=== PATIENT | female | born 1980 | race Caucasian/White ===

== ENCOUNTER → 2020-11-01 16:53 | Outpatient (CLI) | payer BC, SELFPAY ==
[2020-11-01 17:45] LABS: Add Manual Diff / Slide Review NO; Basophils Absolute Auto 0 /uL (0-100); Basophils Percent Auto 0.2 % (0-2); Eosinophils Absolute Auto 200 /uL (0-450); Eosinophils Percent Auto 1.3 % (2-4); Hematocrit 36.7 % (36-46); Hemoglobin 12.7 g/dL (12.0-16.0); Lymphocytes Absolute Auto 2300 /uL (1100-4500); Lymphocytes Percent Auto 19.2 % (25-40); Mean Corpuscular HGB Conc 34.7 % (30-36); Mean Corpuscular Hemoglobin 32.9 PG (26-34); Mean Corpuscular Volume 94.8 fL (80-100); Monocytes Absolute Auto 400 /uL (0-900); Monocytes Percent Auto 3.8 % (3-14); Neutrophils Absolute Auto 9000 /uL (1500-7000); Neutrophils Percent Auto 75.5 % (50-75); Platelet Count 301 X10^3/uL (150-400); Red Blood Cell Count 3.87 X10^6/uL (4.0-5.2); Red Cell Distribution Width 12.7 % (11.6-14.8); White Blood Cell Count 11.9 X10^3/uL (4.5-11.0)
[2020-11-01 17:53] LABS: Appearance Urine UA CLEAR; Bilirubin Urine UA NEGATIVE (NEGATIVE); Color Urine UA YELLOW; Glucose Urine UA NEGATIVE (Negative); Ketones Urine UA 1+ (NEGATIVE); Leukocyte Esterase Urine UA NEGATIVE (NEGATIVE); Nitrite Urine UA NEGATIVE (Negative); Occult Blood Urine UA TRACE-INTACT (Negative); Protein Urine UA NEGATIVE (Negative); Urobilinogen Urine UA 0.2 E.U./dL (0.2)
[2020-11-01 18:20] LABS: pH Urine UA 5.5 (4.5-8.0)
[2020-11-01 21:34] LABS: HIV 1 & 2 Ab/Ag 4th Gen Combo NEGATIVE (NEGATIVE); Hep C Virus Ab w/Reflex Quant NEGATIVE s/c (NEGATIVE); Hepatitis B Surface Antigen NEGATIVE s/c (NEGATIVE); Rubella Antibody IgG 25.9 IU/mL (>15)
[2020-11-02 06:07] LABS: RPR Screen Non Reactive (Non Reactive)
[2020-11-02 07:09] LABS: Varicella IgG Antibody 1773 index (Immune >165)
[2020-11-03 20:40] LABS: AFP, Serum 53.9 ng/mL (.); Calc Gestational Age Ultrasound (.); Estriol, Free 0.88 ng/mL (.); Inhibin A, Dimeric 267.27 pg/mL (.); Inhibin A, MoM 1.58 (.); Maternal Ethnicity Caucasian (.); Maternal Weight 137 lbs (.); Number of Fetuses No (.); OSBR Risk 1 IN 2965 (.); Results Report (.); Test Results *Screen Negative* (.); hCG, MoM 1.28 (.); hCG, Serum 56206 mIU/mL (.)
== END ==
PROVIDERS: Referring Provider Obstetrics & Gynecology; Visit Provider Obstetrics & Gynecology
DX: Z34.82 Encounter for supervision of other normal pregnancy, second trimester (principal); Z3A.16 16 weeks gestation of pregnancy
CPT/HCPCS: 36415; 80055; 81003; 82105; 82677; 84702; 86336; 86787; 86803; 86850; 86900; 86901; 87086; 87389

== ENCOUNTER → 2020-11-29 12:28 | Outpatient (CLI) | payer BC, SELFPAY ==
--- NOTE | 2020-11-29 12:29 | DI.US.S_ITS ---
PROCEDURE: US OB >= 14 WEEKS FETUS INDICATIONS: 20 week Anatomy Survey OUTSIDE/PRIOR DATING DATA: Last menstrual period (LMP): Unknown. LMP-based estimated date of delivery (BRIAN): Unknown. First dating scan (date and location): 11/01/2020. Estimated date of delivery (BRIAN) from first dating scan: 04/18/2021. TECHNIQUE: Real-time scanning was performed of the fetus, with image documentation and biometric measurements. Endovaginal scanning: Not performed COMPARISON: [facility], , OB >= 14 WEEKS FETUS, 11/29/2020, 16:29. FINDINGS: General: A single living intrauterine gestation is present. Presentation: Breech. Placenta: Placental position is anterior, without previa. Amniotic fluid index: 14.2 cm, normal range is 5-24 cm. heart rate: 155 beats per minute. Maternal cervical canal: 4.8 cm long. Normal lower limit is 2.5 cm. biometrics: Biparietal diameter: 4.4 cm, 19 weeks 3 days Head circumference: 16.5 cm, 19 weeks 1 day Abdominal circumference: 15.2 cm, 20 weeks 3 days Femur length: 3.1 cm, 19 weeks 4 days Estimated gestational age from initial scan: 20 weeks 0 days Composite gestational age from present scan: 19 weeks 5 days Estimated weight and percentile: 320 g 40th percentile. Measurement variability for biometric dating: +/- 7 days from 14 weeks to 15 weeks 6 days gestation, +/- 10 days from 16 weeks to 21 weeks 6 days gestation, +/- 2 weeks from 22 weeks to 27 weeks 6 days gestation, +/- 3 weeks for 28 weeks gestation or later. weight reference: 4500 g or EFW >90/95% is considered macrosomia or large for gestational age. EFW <10% is small for gestational age. EFW 5% or less is considered intra-uterine growth restriction. Anatomic survey: Neuro: Ventricles are non-dilated at less than 10 mm. Cisterna magna is normal at 3-11 mm. Cerebellum is normal in size and morphology. Nuchal skin fold: Normal at less than 6 mm between 14-21 weeks gestational age. Face: Nose and lips, facial profile are normal. Spine: No evidence for spina bifida. Heart: 4-chambered heart is present, with normal ventricular outflow tracts. Diaphragm: Diaphragm is intact. Stomach: Left-sided stomach is present. Kidneys: No hydronephrosis. Normal is less than 5 mm in 2nd trimester, less than 7 mm in 3rd trimester. Cord: 3-vessel cord has orthotopic insertion. Bladder: Normal in size. Extremities: All 4 extremities identified. IMPRESSION: 1. Donald living intrauterine at 19 weeks 5 days based on today's ultrasound. This is concordant with the prior ultrasound. There is expected interval growth. 2. Normal placenta and amniotic fluid. 3. Normal and complete anatomic survey. Dictated by: Luis Fernando Layne M.D. on 11/29/2020 at 17:41 Approved by: Luis Fernando Layne M.D. on 11/29/2020 at 17:44
== END ==
PROVIDERS: Referring Provider Obstetrics & Gynecology; Visit Provider Obstetrics & Gynecology
DX: Z36.89 Encounter for other specified antenatal screening (principal); O09.522 Supervision of elderly multigravida, second trimester; Z3A.19 19 weeks gestation of pregnancy
CPT/HCPCS: 76811

== ENCOUNTER → 2020-12-29 14:45 | Outpatient (CLI) | payer BC, SELFPAY ==
[2020-12-29 20:58] LABS: Urine N gonorrhoeae NOT DETECTED
[2020-12-29 21:19] LABS: Urine Chlamydia NOT DETECTED
== END ==
PROVIDERS: Visit Provider Obstetrics & Gynecology
DX: Z34.82 Encounter for supervision of other normal pregnancy, second trimester (principal); Z3A.24 24 weeks gestation of pregnancy
CPT/HCPCS: 87491; 87591

== ENCOUNTER → 2021-01-18 07:20 | Outpatient (CLI) | payer BC, SELFPAY ==
[2021-01-18 09:35] LABS: Hematocrit 38.1 % (36-46)
[2021-01-18 10:28] LABS: GTT (PREG) 1 Hour PP 50gm Dose 159 mg/dL (76-139)
== END ==
PROVIDERS: Referring Provider Obstetrics & Gynecology; Visit Provider Obstetrics & Gynecology
DX: Z34.82 Encounter for supervision of other normal pregnancy, second trimester (principal); Z3A.26 26 weeks gestation of pregnancy
CPT/HCPCS: 36415; 82950; 85014; 85018

== ENCOUNTER → 2021-01-23 07:06 | Outpatient (CLI) | payer BC, SELFPAY ==
[2021-01-23 08:40] LABS: Glucose Fasting Gestational 77 mg/dL (76-95)
[2021-01-23 09:55] LABS: Glucose 1 Hour Gest 180 mg/dL (76-180)
[2021-01-23 10:57] LABS: Glucose Tol Interp,Gestational INTERPRETATION
[2021-01-23 11:12] LABS: Glucose 2 Hour Gest 143 mg/dL (76-155)
[2021-01-23 12:14] LABS: Glucose 3 Hour Gest 91 mg/dL (76-140)
== END ==
PROVIDERS: Referring Provider Obstetrics & Gynecology; Visit Provider Obstetrics & Gynecology
DX: O99.810 Abnormal glucose complicating pregnancy (principal)
CPT/HCPCS: 36415; 82951; 82952

== ENCOUNTER 2021-03-16 16:02 | Outpatient (CLI) | payer BC, SELFPAY | END 2021-03-16 16:40 | disposition home or self-care (01) | LOC: OB 03-21 12:04 | PROVIDERS: Referring Provider Obstetrics & Gynecology; Visit Provider Obstetrics & Gynecology | DX: O36.8130 Decreased fetal movements, third trimester, not applicable or unspecified (principal); Z3A.35 35 weeks gestation of pregnancy; Z34.03 Encounter for supervision of normal first pregnancy, third trimester | CPT/HCPCS: 59025; 87653; G0378; G0379 ==

== ENCOUNTER → 2021-03-16 16:15 | Outpatient (CLI) | payer BC, SELFPAY ==
[2021-03-17 11:58] LABS: Strep Grp B PCR NEG for Grp B Strep
== END ==
PROVIDERS: Visit Provider Obstetrics & Gynecology
DX: Z34.03 Encounter for supervision of normal first pregnancy, third trimester (principal); Z3A.35 35 weeks gestation of pregnancy
CPT/HCPCS: 87653

== ENCOUNTER 2021-04-10 18:10 | Inpatient (IN) | payer BC, SELFPAY ==
[2021-04-10 22:57] LABS: Add Manual Diff / Slide Review NO; Basophils Absolute Auto 100 /uL (0-100); Basophils Percent Auto 0.5 % (0-2); Eosinophils Absolute Auto 100 /uL (0-450); Eosinophils Percent Auto 0.8 % (2-4); Hemoglobin 12.7 g/dL (12.0-16.0); Lymphocytes Absolute Auto 1800 /uL (1100-4500); Lymphocytes Percent Auto 15.4 % (25-40); Mean Corpuscular HGB Conc 33.4 % (30-36); Mean Corpuscular Hemoglobin 31.9 PG (26-34); Mean Corpuscular Volume 95.6 fL (80-100); Monocytes Absolute Auto 600 /uL (0-900); Monocytes Percent Auto 5.4 % (3-14); Neutrophils Absolute Auto 9100 /uL (1500-7000); Neutrophils Percent Auto 77.9 % (50-75); Platelet Count 233 X10^3/uL (150-400); Red Blood Cell Count 3.97 X10^6/uL (4.0-5.2); Red Cell Distribution Width 13.8 % (11.6-14.8); White Blood Cell Count 11.7 X10^3/uL (4.5-11.0)
[2021-04-10] MEDS: ACETAMINOPHEN 325 MG TABLET 650 MG PO (23:12)
[2021-04-10] MEDS: miSOPROStoL 25 MCG TABLET 50 MCG PO (23:13)
[2021-04-10] MEDS: OXYCODONE IR 10 MG TABLET PO (23:13)
[2021-04-10 23:32] VITALS: BP 136/77
[2021-04-11 00:43] LABS: COVID19 - ADMIT (NP swab/PCR) Negative (Negative)
[2021-04-11] MEDS: ACETAMINOPHEN 325 MG TABLET 650 MG PO ×2 (06:20→17:45)
[2021-04-11] MEDS: PANTOPRAZOLE DR 40 MG TABLET PO (06:20)
[2021-04-11] MEDS: OXYCODONE IR 10 MG TABLET PO (06:20)
[2021-04-11] MEDS: DOCUSATE 100 MG CAPSULE 200 MG PO (09:12)
[2021-04-11] MEDS: LACTATED RINGERS 1,000 ML 100 ML IV (09:28)
[2021-04-11] MEDS: FENT 2MCG/ML BUPIV 0.125% EPI 200 MCG/100 ML PLAST..BAG 10 MCG EPIDURAL (10:33)
[2021-04-11] MEDS: OXYTOCIN PREMIX 30 UNIT/500 ML PLAST..BAG IV (11:24)
--- NOTE | 2021-04-11 17:32 | PM.OBPRVD ---
Events: Labor Induction Labor & Delivery Delivery date: 04/11/21 Cervical ripening method: per misoprostal protocol Induction method: per pitocin protocol Delivery augmentation: rupture of membranes Delivery monitor: external FHT and external uterine Route of delivery: Episiotomy description: None L&D Laceration Description: Labial and Superficial (vaginal) Delivery repair: chromic Estimated blood loss (mL): 100 Anesthesia Type: Epidural Complications: None Narrative: Patient complete and pushed for 2 hours and 4 minutes. At 5:07 p.m., a live male infant delivered in the ROT presentation. Nuchal cord x1 reduced on the perineum. The remainder of the body delivered without difficulty and were placed on mom's abdomen. The cord was double clamped and cut after it stopped pulsing. Pitocin was given in the IV fluids. Cord bloods were obtained. The umbilical cord snapped with traction. A manual extraction of the placenta at 5:20 p.m.. Fundus was massaged to firm. A right superficial labial laceration was repaired with 3-0 chromic in a running interlocking fashion. A superficial vaginal laceration in the midline was repaired with 3 0 chromic with 2 simple interrupted sutures. Hemostasis was achieved. Apgars 9 at 1 minute and 9 at 5 minutes. Epidural analgesia. . Mom and stable to recovery. Lap and 4 x 4 count correct. Needle count correct. Weight 6# 6.7oz Baby 1: gender: Male Presentation: vertex Position: Right Occiput Transverse Placenta delivery description: Manual Removal Cord Vessel Description: 3 Vessels, Nuchal Cord, Loose, Reduced and Clamped/Cut score (1 min): 9 score (5 min): 9 weight: 6 lb 6 oz Plan for aftercare: Routine care
[2021-04-11] MEDS: IBUPROFEN 600 MG TABLET PO (17:45)
[2021-04-11] MEDS: OXYCODONE IR 5 MG TABLET PO (20:10)
[2021-04-12 05:23] LABS: Hematocrit 37.5 % (36-46); Hemoglobin 12.5 g/dL (12.0-16.0)
[2021-04-12] MEDS: OXYCODONE IR 5 MG TABLET PO (06:45)
[2021-04-12] MEDS: ACETAMINOPHEN 325 MG TABLET 650 MG PO ×2 (06:45→12:18)
[2021-04-12] MEDS: DOCUSATE 100 MG CAPSULE PO (09:13)
[2021-04-12] MEDS: PRENATAL VIT,CALC/IRON/FOLIC 1 TABLET 1 TAB PO (09:13)
[2021-04-12] MEDS: IBUPROFEN 600 MG TABLET PO (12:07)
[2021-04-12] MEDS: DERMOPLAST SPRAY 20% 60 ML 1 SPRAY TOP (12:09)
[2021-04-12 14:15] VITALS: BP 105/63; PULSE 82; RESP 16; TEMP 36.6
--- NOTE | 2021-04-13 13:12 | PM.OBDS.1 ---
Discharge Providers Provider Date of admission: 04/10/21 18:10 Discharge Date: 04/12/21 Primary care physician: Doctor Abigail MD Discharge provider: Lnyne Pedroza MD Summary Hospital Course Date Patient Seen: 04/12/21 Time Patient Seen: 13:00 Diagnoses: 39 weeks gestation Moreno's Palsy Cervical ripening with misoprostol Spontaneous vaginal delivery Superficial vaginal and right labial laceration and repair Hospital Course: Patient is a 40-year-old 2 para 1 who presented on April 10, 2021 for cervical ripening with misoprostol. She received 1 dose. She progressed into active labor. She received an epidural for pain management. She had an artificial rupture of membranes. She had a spontaneous vaginal delivery without complication. Her course was unremarkable and she was discharged home on day # 1. Peripartum Data Infant Delivery Method: Natural Vaginal Laceration Description: Labial and Superficial ( Vaginal and right labial) Episiotomy description: None Procedures: Cervical ripening with misoprostol Artificial rupture of member Spontaneous vaginal delivery Epidural analgesia Superficial right labial and superficial vaginal laceration repair complications: none 1: Gender: Male Disposition of : home Status at Discharge Cognitive/behavioral status at discharge: oriented Functional status at discharge: independent ambulation Overall status at discharge: patient is progressing back to baseline Time Spent with Patient Time attestation: Total time spent providing and/or coordinating discharge services: Time spent: Less than 30 minutes Objective Labs Result Diagrams: 04/12/21 05:05 Discharge Plan Discharge Plan Patient Disposition: Home Provider Discharge Comment: Call with fever, chills, or bleeding vaginally more than a pad in an hour Ibuprofen 600-800 mg every 6 hours as needed for cramping Tylenol 650 mg every 6 hours as needed Discharge orders & Medications Prescriptions: Continued ELECTRIC BREAST PUMP, CHOICE PENDING See Rx Instructions .ROUTE .COMPLEX Qty: 1 RF: 0 prenat.vits,vangie,fea-rhve-mkunn Tablet 1 tab PO DAILY RF: 0 oxycodone 5 mg tablet 5 mg PO Q4H PRN (Reason: pain) Qty: 20 RF: 0 Discontinued pantoprazole [Protonix] 40 mg tablet,delayed release (DR/EC) 40 mg PO DAILY Qty: 30 RF: 3 ondansetron 4 mg tablet,disintegrating 4 mg PO Q6H PRN (Reason: nausea and vomiting) Qty: 14 RF: 0 Follow up/Referrals: Lynne Pedroza MD [Physician] - 6 Weeks (Novemeber 10th, [address] check with Dr Pedroza) Diet/Activity/Treatments Diet: Regular Activity: nothing in the vagina for 6 weeks Skin/Wound/Dressing Care Report to your healthcare provider any signs of infection, such as:: chills, fever, increased pain and unusual drainage Visit Report/Discharge Packet Instructions: Moreno Palsy, DI for Labor and Delivery, Vaginal , DI for Prescription Opioid Use Stand Alone Forms: Discharge: Care Discharge Data Primary Care Provider: Miscellaneous,Doctor
--- NOTE | 2021-04-23 13:10 | PM.OBHP.1 ---
OB HPI Date/Time Date of admission: 04/10/21 Date Patient Seen: 04/11/21 Time Patient Seen: 07:30 History of Present Condition Chief complaint: Labor & Delivery : 2 Para: 0 Estimated Date of Delivery: 04/10/21 Estimated Gestational Age (weeks): 39 Narrative: Cristiana Waters is a 40 year old female 2 para 0 at estimated gestational age of 39 weeks gestation for induction of labor due to Moreno's palsy. Indications Indication for induction OB: other (Moreno's palsy) Other reason(s) for admission: Moreno's palsy History of Present care: good care, initiated at week # (15), number of visits (10) and pounds weight gain (33) Dating criteria: LMP confirmed by 1st trimester US Ultrasounds: normal 1st trimester US and normal mid trimester US Medical complications: neurological (Moreno's palsy) Preadmission Labs Blood type: AB (+) positive -: Antibody screen: negative, GBS status: negative, HBsAG: negative, HIV: negative and RPR/VDLR: negative -: Chlamydia screen: not detected and Gonorrhea screen: not detected -: Rubella: immune and Varicella: immune HCT: 37.5 HCAB: negative PAP: Normal Quad screen: Normal Urine: Negative 1 hr GTT: 159 3 hr GTT: 1 hr (180), 2 hr (143) and 3 hr (91) Fasting blood glucose: 77 Prior (ies) History: SAB Evaluation Evaluation Baseline heart rate: 140 Variability: Moderate (11-25) monitor accelerations: Present Monitor Decelerations: Absent Contraction Frequency (minutes): 3 Uterine Contraction Intensity: Moderate Status: Category l Cervical dilation (cm): 3 Cervical effacement (%): 90 station: 0 PFSH Medical History (Updated 04/03/21 @ 06:44 by Lynne Pedroza MD) Abnormal Pap smear of cervix (~07/2005) ADHD AMA (advanced maternal age) primigravida 35+ Anxiety Basal cell carcinoma (~2018) Chlamydia History of being hospitalized HPV in female Hx of migraines Pneumonia (~2007) Staph skin infection Surgical History (Updated 11/11/20 @ 09:08 by Lynne Pedroza MD) H/O LEEP (~2009) History of breast augmentation (~12/2018) History of bunionectomy (~2014) History of colposcopy (~2003) S/P bunionectomy (~2015) S/P dilation and curettage (~07/2005) Status post colposcopy (~2009) Status post cone biopsy of cervix (~2008) Status post surgery (~2009) [place] teeth extracted Family History (Updated 10/31/20 @ 15:31 by Shae Grissom RN) Mother Hyperlipidemia Depression Osteoarthritis Father Hypertension Hyperlipidemia Insomnia Anxiety Grandmother Cancer Pancreatic cancer Anxiety Depression Pancreatitis Hypothyroid Hyperlipidemia Migraine Aortic stenosis Grandfather Bipolar 1 disorder Diabetes mellitus Type 2 diabetes mellitus Hypertension CAD (coronary artery disease) Grandmother Old age Hyperlipidemia Hypertension Hypothyroid CVA (cerebral vascular accident) Aortic stenosis Congestive heart failure Alopecia Spinal stenosis Grandfather Cardiac arrest Chronic a-fib Insomnia Internal bleeding Sister Bipolar 1 disorder Borderline personality disorder in adolescent Anxiety Family/Other Cancer Pancreatic cancer Family/Other Cancer Lung cancer Prostate cancer Family/Other Cancer Lung cancer Heavy smoker (more than 20 cigarettes per day) Family/Other Ocular lymphoma Social History marital status: unmarried,living together household members: significant other pets and animals: Yes (Dogs) education level: college occupational status: employed (Works from Home prior to Covid : [employer] ) current occupational exposures/hazards: No special vivian needs: No Smoking Status: Never smoker Tobacco: How many years used: 15 quit status: has quit before second hand exposure: No alcohol intake: former (pre- : social 1-2 drinks/week (DC with + test)) substance use type: does not use ( DC with + test), marijuana (edibles : DC with + test) and hallucinogens (Mushrooms - microdosing for anxiety : DC with + test) Meds Home Medications and Allergies Home Medications Medication Instructions Recorded Confirmed Type prenat.vits,vangie,djd-gvwa-pjdzf 1 tab PO DAILY 10/31/20 04/10/21 History oxycodone 5 mg tablet 5 mg PO Q4H PRN #20 tab 04/06/21 04/10/21 Rx ELECTRIC BREAST PUMP, CHOICE See Rx Instructions .ROUTE 04/21/21 Rx PENDING .COMPLEX #1 ea Allergies Allergy/AdvReac Type Severity Reaction Status Date / Time codeine AdvReac Severe Nausea and Verified 04/06/21 15:38 Vomiting Exam Narrative Exam Narrative: Generally: Patient comfortable with epidural Lungs: Clear to auscultation bilaterally Cardiovascular: Regular rate and rhythm Fundal height: 40 cm Estimated weight: 7-1/2 lb Extremities: No edema, 1+ DTRs Objective Labs Result Diagrams: 04/12/21 05:05 Assessment and Plan Assessment and Plan Assessment and Plan narrative: Assessment: 40-year-old 2 para 0 at an estimated gestational age of 39 weeks for induction of labor due to Moreno's palsy Status post Cervidil cervical ripening last evening Progressing into active labor Plan: Pitocin augmentation is knee Artificial rupture of membranes when able Expected management to spontaneous vaginal delivery Time Spent with Patient Total time spent with greater than 50% in coordination of care (as documented) at patient's floor/unit and/or counseling patient:: 15-24 minutes
== END 2021-04-12 16:44 | disposition home or self-care (01) | DRG 807 ==
PROVIDERS: Admitting Provider Obstetrics & Gynecology; Referring Provider Obstetrics & Gynecology; Visit Provider Obstetrics & Gynecology
DX: O99.891 Other specified diseases and conditions complicating pregnancy (principal); Z37.0 Single live birth; G51.0 Bell's palsy; Z3A.38 38 weeks gestation of pregnancy; O70.0 First degree perineal laceration during delivery; O69.81X0 Labor and delivery complicated by cord around neck, without compression, not applicable or unspecified; Z20.822 Contact with and (suspected) exposure to COVID-19
CPT/HCPCS: 01967; 36415; 59050; 59200; 59400; 85014; 85018; 85025; 86850; 86900; 86901; 87635; C9803; G0379; J2590